=== PATIENT | female | born 1985 | race Caucasian/White ===

== ENCOUNTER 2017-03-04 01:59 | Inpatient (IN) | payer BC, OTHER ==
[2017-03-04] VITALS (8 sets, daily range): BP systolic 90–146; BP diastolic 51–92
[~2017-03-04] VITALS: Ht 167.6 cm; Wt 57.6 kg
[~2017-03-04 01:59] MED LIST: ACYCLOVIR400 MG PO; ANAPROX DS550 MG PO; BACTROBAN OINT22 GM PO; BUPRENORPHINE HY8 MG SL; KEFLEX500 MG PO; PRENATAL1 TA3 PO; SYNTHROID0.15 MG PO; TOBREX OPHTH S2.5 ML OPH
[2017-03-04 02:37] LABS: BILIRUBIN NEGATIVE (NEGATIVE); BLOOD NEGATIVE (NEGATIVE); CLARITY SL CLOUDY (CLEAR); COLOR YELLOW (YELLOW); GLUCOSE NEGATIVE (NEGATIVE); KETONE NEGATIVE (NEGATIVE); LEUKO ESTERASE TRACE (NEGATIVE); NITRITE NEGATIVE (NEGATIVE); SPECIFIC GRAVITY 1.015 (1.005-1.030)
--- NOTE | 2017-03-04 02:44 | NUR ---
PATIENT SITTING HIGH FOWLERS POSITION STATES ABD IS PAINFUL, STATES PAIN FOR SEVERAL WEEKS AND YEARS COMES AND GOES, PAIN NONSPECIFIC TO LOCATION NOMOACTIVE BOWEL SOUNDS THROUGHOUT, STATES PAIN IS SHARP IN NATURE, ABD SOFT AND SLIGHTLY DISTENDED PT STATES LAST BOWEL MOVEMENT APROX 2 DAYS AGO BUT DOES NOT THINK THIS IS CONSTIPATION
[2017-03-04 02:45] LABS: BACTERIA 3+; EPITHELIAL CELLS 35-40; WBC 16-20 wbc/hpf (0-5)
[2017-03-04 02:47] LABS: URINE AMPHETAMINES < 1000 (1000ng/ml); URINE BARBITURATES < 200 (200ng/ml); URINE BENZODIAZEPINES > 200 (200ng/ml); URINE CANNABINOIDS (THC) < 50 (50ng/ml); URINE COCAINE > 300 (300ng/ml); URINE METHADONE < 300 (300ng/ml); URINE OPIATES < 300 (300ng/ml)
[2017-03-04 02:49] LABS: URINE PHENCYCLIDINE < 25 (25ng/ml)
--- NOTE | 2017-03-04 02:49 | NUR ---
RESP TO GIVE PT BREATHING TX , PATIENT STATES SHE IS TOO SICK FOR TX,
[2017-03-04 03:21] LABS: BASO # 0.1 10*3/uL (0.0-0.1); BASO % 0.5 % (0.0-1.0); EOS # 0.1 10*3/uL (0.0-0.4); EOS % 0.8 % (1.0-4.0); HEMATOCRIT 33.4 % (37.0-47.0); HEMOGLOBIN 11.2 g/dl (12.0-16.0); LYMPH # 1.9 10*3/uL (1.3-4.4); LYMPH % 14.8 % (27.0-41.0); MEAN CELL VOLUME 93.6 fl (81.0-99.0); MEAN CORPUSCULAR HGB 31.4 pg (27.0-31.0); MEAN CORPUSCULAR HGB CONC 33.5 g/dl (33.0-37.0); MEAN PLATELET VOLUME 10.9 fl (9.6-12.3); MONO # 0.5 10*3/uL (0.1-1.0); MONO % 3.7 % (3.0-9.0); NEUT # 10.5 10*3/uL (2.3-7.9); NEUT % 79.7 % (47.0-73.0); PLATELET COUNT AUTOMATED 225 10*3/uL (130-400); RED BLOOD COUNT 3.57 10*6/uL (4.10-5.10); RED CELL DISTRI WIDTH 14.1 % (0-14.5); WHITE BLOOD COUNT 13.1 10*3/uL (4.8-10.8)
[2017-03-04 03:43] LABS: ALBUMIN 3.6 gm/dl (3.1-4.5); ALKALINE PHOSPHATASE 106 U/L (45-117); BUN 7 mg/dl (7-24); CHLORIDE 98 mmol/L (98-107); CREATININE 1.05 mg/dL (0.55-1.02); LIPASE 66 U/L (73-393); POTASSIUM 3.6 mmol/L (3.5-5.1); SGOT/AST 35 IU/L (3-35); SGPT/ALT 19 U/L (12-78); SODIUM 133 mmol/L (136-145); TOTAL PROTEIN 8.3 gm/dL (6.4-8.2)
--- NOTE | 2017-03-04 04:52 | NUR ---
PATIENT IN BED C/O ABD PAIN, NO NOTED WOUNDS ON PATIENT, NO HISTORY OF MRSA
--- NOTE | 2017-03-04 04:55 | NUR ---
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
--- NOTE | 2017-03-04 05:29 | NUR ---
[facility] 31, admitted to , under the services of PELON Bergman DO with a diagnosis of POLYSUBSTANCE ABUSE, PNEUMONIA. Chief complaint is NAUSEA, VOMITTING, SINUS CONGESTION . Patient arrived via ambulatory from ER. Monitor applied. Initial assessment completed. Vital signs taken and recorded. PELON BERGMAN DO notified of admission to the unit. Orders received. See assessment for past medical history, medications and allergies. Patient and/or family oriented to unit. [facility] visitation policy reviewed. Clothing/patient valuable form completed. SUNITHA ALEJANDRE
--- NOTE | 2017-03-04 06:46 | NUR ---
VIRGILIO GALVIN [id number] Please refer to the physician's history and physical for past medical history, comorbid conditions, and allergies. Diagnosis: POLYSUBSTANCE ABUSE PNEUMONIA Pb Score: 21,LOW OR NO RISK WOUND DESCRIPTIONS: Location of the wound: bridge of nose Type of wound: traumatic Thickness: Partial Size: 0.5cm x 0.3cm x 0.1cm Tunneling: none Undermining: none Sinus Tract: none Presence of Exudate: none Amount: None Color: Red Odor: None Periwound Skin Appearance: Normal Wound edges: approximated Pain (associated with wound): none at time of assessment How does patient state this happened? pt stated that she blacked out but told the previous nurse she was unsure how this happened Surface the patient is resting on: Isoflex SKIN PREVENTION RECOMMENDATION: 1. Pressure redistribution support surface as appropriate 2. Elevate heels 3. Remove boots/TEDS every shift and reapply 4. Head of bed 30 degrees as tolerated 5. Assess nutrition and hydration 6. Manage moisture 7. Avoid the use of containment devices while in bed 8. Use absorptive products on surfaces limit layers of linens on bed 9. Turn and reposition every 1-2 hours in bed and every 1 hour in chair as tolerated 10. Weight shifts every 15 minutes while up in chair 11. Offloading with pillows or device to keep heels elevated off bed 12. Monitor skin at least every shift 13. Inspect under medical devices twice a day WOUND TREATMENT RECOMMENDATIONS: leave open to air area is scab over no drainge noted no redness noted at this time.
[2017-03-04] MEDS ORDERED: SUBOXONE 8 MG-1 EACH SL (08:59)
--- NOTE | 2017-03-04 19:59 | NUR ---
PT. IS CURRENTLY SITTING UP IN BED WATCHING TV AT THIS TIME. NO DISTRESS IS NOTED, BUT PT. DOES VOICE CONCERNS OF RUQ ABDOMINAL PAIN THAT RADIATES TO BACK AND SHOULDERS, SEE EMAR FOR TX. CALL LIGHT WITHIN REACH, HOB ELEVATED, BED LOW AND WHEELS ARE LOCKED, SEE SHIFT ASSESSMENT.
--- NOTE | 2017-03-04 20:03 | NUR ---
DR. CANALES CONTACTED IN REGARDS TO PT. C/O PAIN IN THE RUQ RADIATING TO BACK AND SHOULDER, ALSO MADE AWARE OF ABDOMINAL ULTRASOUD RESULTS, SEE NEW ORDERS.
--- NOTE | 2017-03-04 22:36 | NUR ---
DR. QUINONES CONTACTED IN [facility] TO CONSULT, NO NEW ORDERS.
[2017-03-05] VITALS: BP 91/58
--- NOTE | 2017-03-05 02:29 | NUR ---
AFTER RECIEVING CALLS FROM THE SENIOR SALES OPERATIONS ANALYST. THAT PT. WAS OFF THE MONITOR, WENT BACK TO CHECK AND PT. WAS NOT IN ROOM. UPON FURTHER INVESTIGATION, PT. WAS OFF MONITOR SINCE 99, BUT PA'S REPORTED THAT THEY SAW PT. IN ROOM AROUND 0140. DR. YORK CONTACTED AND MADE AWARE, WELL NURSING BUSINESS UNIT DIRECTOR.
== END 2017-03-05 01:15 | disposition left against medical advice (07) | DRG 871 ==
LOC: ED 01:59 → EDHOLD 04:45 → 5E 04:56
PROVIDERS: Emergency Medicine; ADMIT Emergency Medicine
DX: A41.9 Sepsis, unspecified organism (principal); J69.0 Pneumonitis due to inhalation of food and vomit; N17.0 Acute kidney failure with tubular necrosis; E87.1 Hypo-osmolality and hyponatremia; E83.41 Hypermagnesemia; A59.9 Trichomoniasis, unspecified; E03.9 Hypothyroidism, unspecified; F19.10 Other psychoactive substance abuse, uncomplicated; F17.200 Nicotine dependence, unspecified, uncomplicated; F14.90 Cocaine use, unspecified, uncomplicated; Z53.21 Procedure and treatment not carried out due to patient leaving prior to being seen by health care provider; F13.10 Sedative, hypnotic or anxiolytic abuse, uncomplicated; Z82.49 Family history of ischemic heart disease and other diseases of the circulatory system; Z83.3 Family history of diabetes mellitus; Z81.1 Family history of alcohol abuse and dependence; Z79.899 Other long term (current) drug therapy

== ENCOUNTER 2017-03-15 02:04 | Inpatient (IN) | payer BC, OTHER ==
[~2017-03-15] VITALS: Ht 167.6 cm; Wt 47.6 kg
[2017-03-15] VITALS (7 sets, daily range): BP systolic 91–114; BP diastolic 61–92
[~2017-03-15 02:04] MED LIST changes: +SUBOXONE 8 MG-1 EACH SL
[2017-03-15 02:46] LABS: BILIRUBIN NEGATIVE (NEGATIVE); BLOOD NEGATIVE (NEGATIVE); CLARITY SL CLOUDY (CLEAR); COLOR YELLOW (YELLOW); GLUCOSE NEGATIVE (NEGATIVE); KETONE TRACE (NEGATIVE); LEUKO ESTERASE NEGATIVE (NEGATIVE); NITRITE NEGATIVE (NEGATIVE); UROBILINOGEN 0.2 E.U./dl (0.2-1.0)
[2017-03-15 02:47] LABS: BASO # 0.1 10*3/uL (0.0-0.1); BASO % 0.8 % (0.0-1.0); EOS # 0.2 10*3/uL (0.0-0.4); EOS % 1.9 % (1.0-4.0); HEMATOCRIT 36.6 % (37.0-47.0); HEMOGLOBIN 11.9 g/dl (12.0-16.0); LYMPH # 2.8 10*3/uL (1.3-4.4); LYMPH % 22.2 % (27.0-41.0); MEAN CELL VOLUME 96.3 fl (81.0-99.0); MEAN CORPUSCULAR HGB 31.3 pg (27.0-31.0); MEAN CORPUSCULAR HGB CONC 32.5 g/dl (33.0-37.0); MEAN PLATELET VOLUME 9.8 fl (9.6-12.3); MONO # 0.4 10*3/uL (0.1-1.0); MONO % 3.4 % (3.0-9.0); NEUT % 70.6 % (47.0-73.0); PLATELET COUNT AUTOMATED 386 10*3/uL (130-400); RED CELL DISTRI WIDTH 14.8 % (0-14.5); WHITE BLOOD COUNT 12.8 10*3/uL (4.8-10.8)
[2017-03-15 02:57] LABS: BACTERIA 2+; EPITHELIAL CELLS 30-35
[2017-03-15 03:04] LABS: ALBUMIN 3.6 gm/dl (3.1-4.5); ALKALINE PHOSPHATASE 113 U/L (45-117); BUN 21 mg/dl (7-24); CHLORIDE 103 mmol/L (98-107); LIPASE 136 U/L (73-393); POTASSIUM 3.9 mmol/L (3.5-5.1); SGOT/AST 37 IU/L (3-35); SGPT/ALT 25 U/L (12-78); SODIUM 140 mmol/L (136-145)
[2017-03-15 03:09] LABS: BETA-HCG, QUANT < 1.0 mIU/mL (1-3)
[2017-03-15] MEDS ORDERED: SYNTHROID,LEV175 MCG PO (05:24)
[2017-03-15 06:29] LABS: BASO # 0.1 10*3/uL (0.0-0.1); BASO % 0.7 % (0.0-1.0); EOS # 0.3 10*3/uL (0.0-0.4); HEMATOCRIT 35.5 % (37.0-47.0); HEMOGLOBIN 11.7 g/dl (12.0-16.0); LYMPH # 2.7 10*3/uL (1.3-4.4); LYMPH % 22.3 % (27.0-41.0); MEAN CELL VOLUME 94.9 fl (81.0-99.0); MEAN CORPUSCULAR HGB 31.3 pg (27.0-31.0); MONO # 0.3 10*3/uL (0.1-1.0); MONO % 2.8 % (3.0-9.0); NEUT # 8.7 10*3/uL (2.3-7.9); NEUT % 71.3 % (47.0-73.0); PLATELET COUNT AUTOMATED 366 10*3/uL (130-400); RED BLOOD COUNT 3.74 10*6/uL (4.10-5.10); RED CELL DISTRI WIDTH 14.7 % (0-14.5); WHITE BLOOD COUNT 12.3 10*3/uL (4.8-10.8)
[2017-03-15 07:05] LABS: ACT PARTIAL THROMBO TIME 31.5 SECONDS (20.8-31.5); ALBUMIN 3.4 gm/dl (3.1-4.5); CREATININE 1.43 mg/dL (0.55-1.02); PHOSPHOROUS 2.7 mg/dL (2.5-4.9); POTASSIUM 3.7 mmol/L (3.5-5.1); TOTAL PROTEIN 7.3 gm/dL (6.4-8.2)
[2017-03-15 07:12] LABS: FREE T4 0.12 ng/dl (0.76-1.46)
[2017-03-15 07:14] LABS: THYROID STIM HORMONE (HS) 80.8 uIU/ml (0.358-4.75)
[2017-03-15 07:15] LABS: VITAMIN D, 25-HYDROXY 10.9 ng/mL (30-100)
[2017-03-16] VITALS (13 sets, daily range): BP systolic 84–118; BP diastolic 48–72
[2017-03-16 06:52] LABS: BASO # 0.1 10*3/uL (0.0-0.1); BASO % 1.3 % (0.0-1.0); EOS # 0.3 10*3/uL (0.0-0.4); EOS % 4.7 % (1.0-4.0); HEMATOCRIT 33.5 % (37.0-47.0); LYMPH # 2.2 10*3/uL (1.3-4.4); LYMPH % 34.8 % (27.0-41.0); MEAN CORPUSCULAR HGB 31.5 pg (27.0-31.0); MEAN CORPUSCULAR HGB CONC 32.8 g/dl (33.0-37.0); MEAN PLATELET VOLUME 10.3 fl (9.6-12.3); MONO # 0.3 10*3/uL (0.1-1.0); MONO % 4.4 % (3.0-9.0); NEUT # 3.4 10*3/uL (2.3-7.9); NEUT % 54.2 % (47.0-73.0); PLATELET COUNT AUTOMATED 317 10*3/uL (130-400); RED BLOOD COUNT 3.49 10*6/uL (4.10-5.10); RED CELL DISTRI WIDTH 15.2 % (0-14.5); WHITE BLOOD COUNT 6.4 10*3/uL (4.8-10.8)
[2017-03-16 07:41] LABS: ALBUMIN 2.7 gm/dl (3.1-4.5); ALKALINE PHOSPHATASE 84 U/L (45-117); BUN 11 mg/dl (7-24); CHLORIDE 110 mmol/L (98-107); CREATININE 1.09 mg/dL (0.55-1.02); POTASSIUM 3.8 mmol/L (3.5-5.1); SGOT/AST 22 IU/L (3-35); SGPT/ALT 17 U/L (12-78); SODIUM 144 mmol/L (136-145); TOTAL PROTEIN 6.1 gm/dL (6.4-8.2)
[2017-03-17] VITALS: BP 100/50
[2017-03-17 08:00] VITALS: BP 100/62
[2017-03-17 12:00] VITALS: BP 103/63
[2017-03-17] MEDS ORDERED: NATURE'S BLEND F1 MG PO (13:45)
[2017-03-17] MEDS ORDERED: VITAMIN D31000 UNI1 PO (13:45)
== END 2017-03-17 15:46 | disposition home or self-care (01) | DRG 853 ==
LOC: ED 02:04 → EDHOLD 04:50 → 4E 04:50
PROVIDERS: Hospitalist; Registered Nurse; Student in an Organized Health Care Education/Training Program
PROC: 0FT44ZZ Resection of Gallbladder, Percutaneous Endoscopic Approach (ICD-10-PCS; principal; 2017-03-16)
PROC: BF131ZZ Fluoroscopy of Gallbladder and Bile Ducts using Low Osmolar Contrast (ICD-10-PCS; principal; 2017-03-16)
DX: A41.9 Sepsis, unspecified organism (principal); N17.0 Acute kidney failure with tubular necrosis; J18.9 Pneumonia, unspecified organism; E83.41 Hypermagnesemia; E83.51 Hypocalcemia; K80.18 Calculus of gallbladder with other cholecystitis without obstruction; K59.00 Constipation, unspecified; J20.9 Acute bronchitis, unspecified; E55.9 Vitamin D deficiency, unspecified; E53.8 Deficiency of other specified B group vitamins; E03.9 Hypothyroidism, unspecified; Z91.14 Patient's other noncompliance with medication regimen; Z87.01 Personal history of pneumonia (recurrent); Z82.49 Family history of ischemic heart disease and other diseases of the circulatory system; Z83.3 Family history of diabetes mellitus; Z72.0 Tobacco use; Z79.899 Other long term (current) drug therapy; Z71.6 Tobacco abuse counseling

== ENCOUNTER → 2018-10-10 | Outpatient (CLI) | payer BC, OTHER ==
[~2018-10-10] MED LIST changes: +NATURE'S BLEND F1 MG PO; +SYNTHROID,LEV175 MCG PO; +VITAMIN D31000 UNI1 PO
[2018-10-10 16:21] LABS: HEMOGLOBIN 13.7 g/dl (12.0-16.0); MEAN CELL VOLUME 96.4 fl (81.0-99.0); MEAN CORPUSCULAR HGB 30.7 pg (27.0-31.0); MEAN CORPUSCULAR HGB CONC 31.9 g/dl (33.0-37.0); MEAN PLATELET VOLUME 10.9 fl (9.6-12.3); RED BLOOD COUNT 4.46 10*6/uL (4.10-5.10); RED CELL DISTRI WIDTH 12.8 % (0-14.5)
[2018-10-10 16:59] LABS: ALBUMIN 3.6 gm/dl (3.1-4.5); ALKALINE PHOSPHATASE 341 U/L (45-117); BUN 7 mg/dl (7-24); CHLORIDE 108 mmol/L (98-107); CHOLESTEROL 218 mg/dL (<200); CREATININE 0.82 mg/dL (0.55-1.02); HDL CHOLESTEROL 45 mg/dl (40-60); LDL CHOLESTEROL 153 mg/dL (9-159); POTASSIUM 3.9 mmol/L (3.5-5.1); SGOT/AST 96 IU/L (3-35); SGPT/ALT 62 U/L (12-78); SODIUM 141 mmol/L (136-145); TOTAL PROTEIN 6.9 gm/dL (6.4-8.2); TRIGLYCERIDES 98 mg/dl (<150); VLDL CHOLESTEROL 20 mg/dL (6-40)
[2018-10-10 17:05] LABS: FREE T4 2.08 ng/dl (0.76-1.46); THYROID STIM HORMONE (HS) 0.028 uIU/ml (0.358-4.75)
[2018-10-11 08:11] LABS: THYROID PEROXIDASE (TPO) AB 56 IU/mL (0-34)
[2018-10-11 11:10] LABS: HEPATITIS B SURFACE AG Negative (Negative); HEPATITIS C VIRUS ANTIBODY <0.1 s/co (0.0-0.9)
== END | disposition home or self-care (01) ==
LOC: LAB 15:55
PROVIDERS: Family Medicine
DX: E55.9 Vitamin D deficiency, unspecified (principal); E03.9 Hypothyroidism, unspecified; E78.00 Pure hypercholesterolemia, unspecified; M79.10 Myalgia, unspecified site; M25.50 Pain in unspecified joint; E05.00 Thyrotoxicosis with diffuse goiter without thyrotoxic crisis or storm; R53.83 Other fatigue

== ENCOUNTER 2019-11-30 16:45 | Emergency (ER) | payer BC, OTHER ==
[~2019-11-30] VITALS: Ht 167.6 cm; Wt 54.4 kg
[2019-11-30 18:48] LABS: BASO # 0.1 10*3/uL (0.0-0.1); BASO % 0.6 % (0.0-1.0); EOS # 0.2 10*3/uL (0.0-0.4); EOS % 1.9 % (1.0-4.0); HEMATOCRIT 42.4 % (37.0-47.0); LYMPH # 2.8 10*3/uL (1.3-4.4); LYMPH % 23.4 % (27.0-41.0); MEAN CELL VOLUME 92.8 fl (81.0-99.0); MEAN CORPUSCULAR HGB 30.6 pg (27.0-31.0); MEAN PLATELET VOLUME 10.3 fl (9.6-12.3); MONO # 0.4 10*3/uL (0.1-1.0); MONO % 3.7 % (3.0-9.0); NEUT # 8.2 10*3/uL (2.3-7.9); NEUT % 70.1 % (47.0-73.0); PLATELET COUNT AUTOMATED 295 10*3/uL (130-400); RED BLOOD COUNT 4.57 10*6/uL (4.10-5.10); RED CELL DISTRI WIDTH 12.7 % (0-14.5); WHITE BLOOD COUNT 11.7 10*3/uL (4.8-10.8)
[2019-11-30 19:05] LABS: ALBUMIN 3.8 gm/dl (3.1-4.5); ALKALINE PHOSPHATASE 159 U/L (45-117); BUN 10 mg/dl (7-24); CHLORIDE 103 mmol/L (98-107); POTASSIUM 3.6 mmol/L (3.5-5.1); SGOT/AST 25 IU/L (3-35); SGPT/ALT 33 U/L (12-78); SODIUM 137 mmol/L (136-145)
[2019-11-30] MEDS ORDERED: IBUPROFEN600 MG PO (20:03)
[2019-11-30] MEDS ORDERED: DOXYCYCLINE100 M3 PO (20:03)
== END 2019-11-30 20:30 | disposition home or self-care (01) ==
LOC: ED 16:45
PROVIDERS: Physician Assistant
DX: L03.211 Cellulitis of face (principal); F17.200 Nicotine dependence, unspecified, uncomplicated; Z79.899 Other long term (current) drug therapy

== ENCOUNTER → 2021-01-29 | Outpatient (CLI) | payer OTHER ==
[~2021-01-29] MED LIST changes: +DOXYCYCLINE100 M3 PO; +GABAPENTIN800 MG PO; +IBUPROFEN600 MG PO; +LEVOFLOXACIN500 MG PO; +MUCINEX1200 M1 PO
== END | disposition home or self-care (01) ==
LOC: RAD 18:38
PROVIDERS: ATTEND Family Medicine
DX: I10 Essential (primary) hypertension (principal)

== ENCOUNTER 2021-06-27 09:18 | Inpatient (IN) | payer OTHER ==
[2021-06-27] VITALS (7 sets, daily range): BP systolic 118–155; BP diastolic 69–84
[~2021-06-27] VITALS: Ht 167.6 cm; Wt 58.2 kg
[2021-06-27 09:59] LABS: BASO # 0.1 10*3/uL (0.0-0.1); BASO % 0.5 % (0.0-1.0); EOS # 0.2 10*3/uL (0.0-0.4); EOS % 1.7 % (1.0-4.0); HEMATOCRIT 36.8 % (37.0-47.0); LYMPH # 1.6 10*3/uL (1.3-4.4); LYMPH % 14.1 % (27.0-41.0); MEAN CELL VOLUME 90.6 fl (81.0-99.0); MEAN CORPUSCULAR HGB 29.1 pg (27.0-31.0); MEAN CORPUSCULAR HGB CONC 32.1 g/dl (33.0-37.0); MEAN PLATELET VOLUME 10.5 fl (9.6-12.3); MONO # 0.5 10*3/uL (0.1-1.0); MONO % 4.8 % (3.0-9.0); NEUT # 8.6 10*3/uL (2.3-7.9); NEUT % 78.5 % (47.0-73.0); PLATELET COUNT AUTOMATED 287 10*3/uL (130-400); RED BLOOD COUNT 4.06 10*6/uL (4.10-5.10); RED CELL DISTRI WIDTH 15.9 % (0-14.5)
[2021-06-27 10:16] LABS: ALKALINE PHOSPHATASE 169 U/L (45-117); BUN 7 mg/dl (7-24); CHLORIDE 109 mmol/L (98-107); CREATININE 0.91 mg/dL (0.55-1.02); POTASSIUM 3.9 mmol/L (3.5-5.1); SGOT/AST 19 IU/L (3-35); SGPT/ALT 42 U/L (12-78); SODIUM 138 mmol/L (136-145); TOTAL PROTEIN 7.9 gm/dL (6.4-8.2)
[2021-06-28] VITALS: BP 125/64
[2021-06-28 06:09] LABS: BASO # 0.1 10*3/uL (0.0-0.1); BASO % 0.7 % (0.0-1.0); EOS # 0.4 10*3/uL (0.0-0.4); EOS % 4.4 % (1.0-4.0); HEMATOCRIT 35.5 % (37.0-47.0); LYMPH # 2.7 10*3/uL (1.3-4.4); LYMPH % 27.3 % (27.0-41.0); MEAN CELL VOLUME 92.4 fl (81.0-99.0); MEAN CORPUSCULAR HGB 29.2 pg (27.0-31.0); MEAN CORPUSCULAR HGB CONC 31.5 g/dl (33.0-37.0); MEAN PLATELET VOLUME 10.6 fl (9.6-12.3); MONO # 0.6 10*3/uL (0.1-1.0); MONO % 5.7 % (3.0-9.0); NEUT # 6.1 10*3/uL (2.3-7.9); NEUT % 61.5 % (47.0-73.0); PLATELET COUNT AUTOMATED 271 10*3/uL (130-400); RED BLOOD COUNT 3.84 10*6/uL (4.10-5.10); RED CELL DISTRI WIDTH 16.2 % (0-14.5)
[2021-06-28 06:19] LABS: BUN 11 mg/dl (7-24); CHLORIDE 106 mmol/L (98-107); CREATININE 0.89 mg/dL (0.55-1.02); POTASSIUM 4.4 mmol/L (3.5-5.1); SODIUM 138 mmol/L (136-145)
[2021-06-28 08:00] VITALS: BP 106/55
[2021-06-28 12:00] VITALS: BP 115/68
[2021-06-28 16:00] VITALS: BP 116/65
[2021-06-28 20:00] VITALS: BP 113/72
[2021-06-29] VITALS (8 sets, daily range): BP systolic 102–124; BP diastolic 56–77
[2021-06-30] VITALS: BP 112/61
[2021-06-30 08:00] VITALS: BP 118/69
[2021-06-30] MEDS ORDERED: SEPTDS PO (09:54)
== END 2021-06-30 11:27 | disposition home or self-care (01) | DRG 364 ==
LOC: ED 09:18 → 4E 14:54 → EDHOLD 14:54 → 4E 15:30
PROVIDERS: Student in an Organized Health Care Education/Training Program; ADMIT Internal Medicine; ATTEND Internal Medicine
PROC: 0W920ZZ Drainage of Face, Open Approach (ICD-10-PCS; principal; 2021-06-29)
DX: L03.213 Periorbital cellulitis (principal); E78.5 Hyperlipidemia, unspecified; L02.01 Cutaneous abscess of face; F17.200 Nicotine dependence, unspecified, uncomplicated; E03.9 Hypothyroidism, unspecified; F11.20 Opioid dependence, uncomplicated; F14.10 Cocaine abuse, uncomplicated; Z22.322 Carrier or suspected carrier of Methicillin resistant Staphylococcus aureus; Z83.3 Family history of diabetes mellitus; Z82.49 Family history of ischemic heart disease and other diseases of the circulatory system